=== PATIENT | male | born 1975 | race Caucasian/White ===

== ENCOUNTER 2020-12-11 10:42 | Outpatient (CLI) | payer OTHER, SELFPAY ==
--- NOTE | 2020-12-11 10:51 | CT_ITS ---
WS: [id number] CT HEAD WITH AND WITHOUT CONTRAST HISTORY: R22.0 - Localized swelling, mass and lump, head TECHNIQUE: Noncontrast 2.5 mm axial images obtained from the vertex to the skull base. Additional johnathan ging performed at 2.5 mm axial images status post IV contrast. Bone and soft tissue windows are revie wed. All CT scans at [facility] use at least one of these dose optimization techniques: a utomated exposure control; mA and/or kV adjustment per patient size (includes targeted exams where do se is matched to clinical indication); or iterative reconstruction. CONTRAST: Omnipaque 300; 95 mL IV. DLP: 1984.08 mGycm COMPARISON: None available. No acute intracranial hemorrhage, edema or midline shift. No enhancing mass or vascular malformations identified. Dural venous sinuses are normally enhancing. Visualized [place] is unremarkable. Paranasal sinuses as visualized: Very mild mucoperiosteal thickening in the ethmoid air cells. No air -fluid levels. Mastoid air cells: Clear. Calvarium and scalp: No fracture. Well-circumscribed encapsulated fatty mass in the calvarium posteri or to the occipital bone measuring 5.1 x 1.3 cm. There is no enhancement. No soft tissue nodule. CT/CT head wo/w con [id number] IMPRESSION: 1. No hemorrhage or intracranial. 2. No vascular malformations. 3. 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
[2020-12-11] MEDS: iohexol 300 mg/mL 100 mL Btl IV (11:30)
== END 2020-12-11 10:43 | disposition home or self-care (01) ==
PROVIDERS: PCP Registered Nurse; Visit Provider Surgery
DX: R22.0 Localized swelling, mass and lump, head (principal)
CPT/HCPCS: 70470; Q9967

== ENCOUNTER → 2021-01-03 13:35 | Outpatient (BNVA) | payer OTHER, SELFPAY | PROVIDERS: PCP Registered Nurse; Visit Provider Surgery | DX: R22.0 Localized swelling, mass and lump, head (principal); Z11.52 Encounter for screening for COVID-19; Z20.822 Contact with and (suspected) exposure to COVID-19 | CPT/HCPCS: 87635 ==

== ENCOUNTER 2021-01-09 05:57 | Day surgery (SDC) | payer OTHER, SELFPAY ==
[2021-01-08 18:35] VITALS: BMI 24.8
--- NOTE | 2021-01-09 06:06 | P.HP_ITS ---
Same Day Surgery H&P Indication for Procedure/HPI DATE OF PROCEDURE: January 09, 2021 CHIEF COMPLAINT/INDICATIONFOR SURGICAL PROCEDURE: Spot on my head PREOP DIAGNOSIS: SCALP MASS PLANNED PROCEDRUE: Operation Date: 01/09/21 07:10 Proposed Procedures p excision of skin lesion (scalp) 06851 r22.0(Not Applicable) - Rhys Webber MD This is a pleasant 45 years old gentleman comes today escorted by his , presents with a long history of a mass located towards the right side of the scalp particularly on the right parietal area. Patient reports that he has been having some discomfort whenever it gets bumped, denies any surgical intervention at that spot before. Report no recent images of the head, denies any other constitutional symptoms and no evidence of symptoms of increased intracranial pressure. Patient reports that he has some pain referred to the right trapezius muscle. Interim history 01/09/2021 Patient undergone a diagnostic CT scan per my request to rule out dermoid cyst and the CT scan was done and showed 1. No hemorrhage or intracranial. 2. No vascular malformations. 3. 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 Patient comes today for excision of mass on the scalp ROS All systems have been reviewed negative except as per the above or per problem list Medications/Allergies* Home Medications Medication Instructions Recorded Confirmed Type No Known Home Medications 11/06/20 11/20/20 History Allergies/Adverse Reactions Allergy/AdvReac Type Severity Reaction Status Date / Time No Known Allergies Allergy Verified 01/09/21 06:09 Pertinent History/Comorbid Conditions* Family History (Updated 11/06/20 @ 10:00 by Tess Perry LPN) Diabetes Social History Smoking and tobacco status: current every day smoker cigarettes Alcohol intake: never Adopted: No Caregiver/support person: No Lives independently: No Household members: spouse and children Marital status: Current occupational status: employed Sexually active: Yes Current gender identity: Male Pertinent Exam Findings alert, oriented x 3, clear to auscultation bilaterally, regular rate & rhythm and procedure specific exam findings (Scalp mass measures 5 x 5 cm located at the midline occipital) Likely lipoma based on clinical examination Recommendations Surgery/Procedure today (Excision of scalp mass) Other Plans: After thorough history physical examination and reviewing the chart and images of the CT scan with my personal interpretation, we will plan for excision of posterior scalp mass as an outpatient procedure. Indications, risks, benefits and alternatives were discussed with the patient and he did agree to proceed. Informed consent per chart Coding Level of Care Code Acute Water Pipe Installer for Mariann Calzada
[2021-01-09] MEDS: sodium chloride 0.9% 1,000 ML 30 ML IV (06:42)
--- NOTE | 2021-01-09 06:57 | ANES.PREANE2 ---
Documented by User: Chip Snyder Jr, CARBON GRINDER 01/09/21 06:59 Pre-Anesthetic Assessment Pre-Anesthetic Assessment: Height/Weight: Height 1.8 m Weight 80.739 kg Preop Diagnosis: Mass of the scalp Proposed Procedure: Operation Date: 01/09/21 07:10 Proposed Procedures p excision of skin lesion (scalp) 37990 r22.0(Not Applicable) - Rhys Webber MD Was Beta Darci taken within 24 hours: N/A Was Clonidine taken within 24 hours: N/A Last intake: Intake Last Liquid Date 01/09/21 Last Liquid Time 21:00 Last Solid Date 01/08/21 Last Solid Time 21:00 Social: Social History: Alcohol and Tobacco Exam: Pre-Anes Outpt Exam: alert, oriented x 3, clear to auscultation bilaterally and regular rate & rhythm Airway: Submandibular: WNL Cervical ROM: WNL MP: 2 Dentition: Chipped and Loose Additional comments: very poor dentition History/ROS: No significant history except as noted and No significant complaints Pulmonary: Pulmonary: None reported CV/HEM: CV/HEM: None reported : : None reported Hepatic: Hepatic: None reported GI: GI: None reported Metabolic: Metabolic: None reported Musc/skel: Musc/skel: None reported Neuropsych: Neuropsych: None reported Anesthetic Plan: ASA status: 2 Anesthesia: Anesthesia Evaluation and General Risk of > 500 ml blood loss (7ml/kg in children): No Meds/Allergies Current Medications: Current Medications Generic Name Dose Route Start Last Admin Trade Name Freq PRN Reason Stop Dose Admin Sodium Chloride 1,000 mls @ 30 ml s/hr 01/09/21 06:30 01/09/21 06:42 Sodium Chloride 0.9% IV 01/10/21 06:29 30 mls/hr .Q24H TOAN Administration PFSH Anesthesia PFSH: Family History Other Diabetes Social History Smoking and tobacco status: current every day smoker cigarettes Alcohol intake: never Adopted: No Caregiver/support person: No Lives independently: No Household members: spouse and children Marital status: Current occupational status: employed Sexually active: Yes Current gender identity: Male Data Anesthesia Cardiac Studies: No Data to Display Documented by User: Ricci Ho 01/09/21 07:31 PFSH Anesthesia PFSH: Family History Other Diabetes Social History Smoking and tobacco status: current every day smoker cigarettes Alcohol intake: never Adopted: No Caregiver/support person: No Lives independently: No Household members: spouse and children Marital status: Current occupational status: employed Sexually active: Yes Current gender identity: Male Data Anesthesia Cardiac Studies: No Data to Display
--- NOTE | 2021-01-09 07:44 | PM.OP ---
Operative Report Date of procedure: January 09, 2021 Pre-op Diagnosis: Mass of the scalp Post-op diagnosis: other (Lipoma of the scalp) Post-op Findings: 5.5 x 4 x 1.5 cm Procedure Done: Excision of scalp mass Specimens removed/disposition: Lipoma of the scalp short sutures marked superior and blue ink marked anterior 5.5x4x1.5 cm Surgeon: Rhys Webber Home Care Administrator: avionics repair technician Fatmata Circulating nurses Sarah and Saba Anesthesia: General (LMA member of the legislative council Jb) Estimated blood loss (mL): 5 Condition: stable Disposition: same day Brief History: Symptomatic scalp mass. Full H&P and informed consent per chart. Procedure: After identifying the patient holding area, the scalp mass was marked before the procedure by myself, patient was then taken to the operative suite, was placed in supine position LMA was placed by anesthesia, IV propofol was infused by the anesthesia, prophylactic IV antibiotics were given per protocol, patient was then positioned in the left lateral position were all pressure points were padded and left ax roll was placed. Prep and drape of the scalp lesion was done under the usual sterile technique Time-out was done verifying the patient's name/date of /planned procedure and destination after the procedure, all were in agreement. After palpation of the scalp mass, I did a longitudinal incision on top of the mass, dissection was carried after the skin incision all the way to the periosteum, lipoma was identified with measurements of 5.5 x 4 x 1.5 cm, short sutures marked anterior and blue ink marked anterior, the specimen was then passed to the circulating nurse for permanent pathology. Thorough irrigation of the cavity was done and hemostasis, followed by deep dermal closure by 2-0 Vicryl, then 2/0 nylon in a horizontal mattress fashion sutures for mass skin closure. Lidocaine 2% was injected at the site of the incision that prior to the injection aspiration was done to make sure no injection is going into any vessel, followed by triple antibiotic ointment and dry dresing then pressure dressing. Patient tolerated the procedure well, count of instruments, needles and sponges were completed at the end of the procedure. And then patient was taken to the recovery area in stable condition. I Was present for the whole entire procedure
[2021-01-09] MEDS: lidocaine 2% INJ 20 mL INJECTION (07:51)
[2021-01-09] MEDS: neomycin-poly-bacitracin oint 28 gm 1 APPLIC TOPICAL (07:51)
[2021-01-09 07:56] VITALS: BP 110/71; PULSE 56; RESP 10; TEMP 36.4; O2SAT 92
[2021-01-09 08:00] VITALS: BP 120/78; PULSE 51; RESP 19; O2SAT 100
[2021-01-09 08:05] VITALS: BP 132/105; PULSE 57; RESP 18; O2SAT 100
[2021-01-09 08:10] VITALS: BP 132/95; PULSE 62; RESP 16; TEMP 36.6; O2SAT 97
[2021-01-09 08:26] VITALS: BP 131/95; PULSE 68; RESP 18; TEMP 36.2; O2SAT 98
[2021-01-09 08:41] VITALS: BP 123/91; PULSE 66; RESP 18; O2SAT 96
--- NOTE | 2021-01-09 14:55 | ANE.PACU2 ---
Inpatient post-anesthesia follow up: Airway intact: Yes Vital signs: Temperature 97.2 F Pulse Rate 66 Respiratory Rate 18 Blood Pressure 123/91 Pulse Oximetry 96 Oxygen Delivery Me thod Room Air Oxygen Flow Rate 8 Fraction of Inspir ed Oxygen Hydration adequate: Yes Nausea and vomiting: No Pain level: 1 Mental status: Baseline
== END 2021-01-09 09:05 | disposition home or self-care (01) ==
PROVIDERS: PCP Registered Nurse; Visit Provider Surgery
PROC: (CPT 11426; principal; 2021-01-09 07:00)
DX: D17.0 Benign lipomatous neoplasm of skin and subcutaneous tissue of head, face and neck (principal); F17.210 Nicotine dependence, cigarettes, uncomplicated
CPT/HCPCS: 11426; 12032; 88307; J0690; J1100; J2405; J2704; J3010; J7030

== ENCOUNTER 2022-07-29 10:04 | Outpatient (CLI) | payer BC, SELFPAY ==
--- NOTE | 2022-07-29 10:35 | XRR_ITS ---
PROCEDURE INFORMATION: Exam: XR Lumbosacral Spine Exam date and time: 07/29/2022 10:36 AM Age: 47 years old Clinical indication: Low back pain; Additional info: S39.012a - strain of muscle, fascia and tendon of lower b. . . TECHNIQUE: Imaging protocol: Radiologic exam of the lumbosacral spine. Views: 2 or 3 views. COMPARISON: No relevant prior studies available. FINDINGS: Bones/joints: The lumbar spine maintains a normal lordotic curvature. Questionable pars defects at L5. No spondylolisthesis identified. The vertebral bodies maintain normal height. Minimal loss of intervertebral disc height at L5-S1 with no significant endplate degenerative changes. No significant degenerative changes identified. Soft tissues: Unremarkable. XR/XR lumbar spine 2-3V* [id number] IMPRESSION: 1. No vertebral body height loss or traumatic malalignment identified. 2. No significant degenerative changes identified. 3. Questionable pars defects at L5. No spondylolisthesis identified.
== END 2022-07-29 10:05 | disposition home or self-care (01) ==
LOC: RAD 10:14
PROVIDERS: PCP Registered Nurse; Visit Provider Nurse Practitioner Family
DX: S39.012A Strain of muscle, fascia and tendon of lower back, initial encounter (principal); X58.XXXA Exposure to other specified factors, initial encounter
CPT/HCPCS: 72100

== ENCOUNTER 2022-08-01 11:32 | Outpatient (CLI) | payer BC, SELFPAY ==
--- NOTE | 2022-08-01 11:45 | MR_ITS ---
WS: [id number] MRI LUMBAR SPINE NONCONTRAST TECHNIQUE: Sagittal T1, T2 and STIR imaging. Axial T1 and T2 imaging. CLINICAL INFORMATION: S39.012A - Strain of muscle, fascia and tendon of lower b... COMPARISON: None. FINDINGS: Mild lumbar curve. No acute compression. No high-grade central canal stenosis. Disc bulging worse at L5-S1. L1-L2: Normal. L2-L3: Normal. L3-L4: No significant disc bulging. Mild facet arthropathy. Spinal canal and foramen are patent. L4-L5: Mild annular bulging. Slight impingement on the RIGHT subarticular recess and traversing RIGHT L5 nerve root. Mild RIGHT and no significant LEFT foraminal narrowing. Mild facet arthropathy. L5-S1: Small LEFT subarticular disc protrusion. Impingement traversing LEFT S1 nerve root in the suba rticular recess. Mild LEFT foraminal narrowing. RIGHT foramen is patent. Spinal canal is patent. Mild facet arthropathy. Visualized pelvic bony structures: Normal. Paravertebral soft tissues: Normal. Adrenal glands are normal. Small shallow central protrusions mid cervical spine at C3-C4 C4-C5 and C5-C6. MR/MR lumbar spine wo con* [id number] IMPRESSION: 1. Mild lumbar curve. No acute compression. 2. Mild annular bulging L4-L5 impinges the traversing RIGHT L5 nerve root in t he subarticular recess. Mild RIGHT foraminal narrowing at this level. 3. LEFT subarticular disc protrusion L5-S1 extends into the LEFT subarticular recess with impingement traversing LEFT S1 nerve root. Mild LEFT foraminal narr owing. 4. Mild facet arthropathy L3-L5.
== END 2022-08-01 11:33 | disposition home or self-care (01) ==
LOC: RAD 11:33
PROVIDERS: PCP Registered Nurse; Visit Provider Nurse Practitioner Family
DX: S39.012A Strain of muscle, fascia and tendon of lower back, initial encounter (principal); M51.26 Other intervertebral disc displacement, lumbar region; M51.27 Other intervertebral disc displacement, lumbosacral region; M47.816 Spondylosis without myelopathy or radiculopathy, lumbar region; X58.XXXA Exposure to other specified factors, initial encounter
CPT/HCPCS: 72148

== ENCOUNTER → 2022-08-20 13:53 | Outpatient (BNVA) | payer BC, SELFPAY | PROVIDERS: PCP Nurse Practitioner Family; Referring Provider Nurse Practitioner Family; Visit Provider Physician Assistant | DX: M51.36 Other intervertebral disc degeneration, lumbar region (principal) | CPT/HCPCS: 72110 ==

== ENCOUNTER 2022-08-26 09:08 | Day surgery (SDC) | payer BC, SELFPAY ==
[2022-08-23 11:19] VITALS: BMI 25.9
--- NOTE | 2022-08-23 11:32 | ANES.PREANE2 ---
Pre-Anesthetic Assessment Height/Weight: Height 1.8 m Weight 84.368 kg Preop Diagnosis: Mass of the scalp Operation Date: 08/26/22 13:40 Proposed Procedures p Discectomy:Microdiscectomy L5/S1 40153, M51.27, M5417,M51.36(Left) - Sebastián Pineda DO Familial anesthetic complications: NOne Social Tobacco and No alcohol Exam alert, oriented x 3, clear to auscultation bilaterally and regular rate & rhythm Airway Mallampati: Class II Dentition: other (no teeth) Pulmonary None reported CV/HEM None reported None reported Hepatic None reported GI None reported Metabolic None reported Musc/skel Lower Back Pain Neuropsych None reported Anesthetic Plan ASA status: 1 Anesthesia: General Risk of > 500 ml blood loss (7ml/kg in children): No Medications/Allergies Home Medications Medication Instructions Recorded Confirmed Last Taken Type hydrocodone 5 mg-acetaminophen 325 1 tab PO Q6H PRN pain 7 days #28 08/20/22 08/23/22 08/23/22 Rx mg tablet tabs Allergies Allergy/AdvReac Type Severity Reaction Status Date / Time No Known Allergies Allergy Verified 08/20/22 14:05 [facility] Anesthesia Medical History (Updated 08/20/22 @ 16:36 by Fausto Garcia PA-C) Dermoid cyst of scalp Mass of scalp Surgical History (Updated 08/23/22 @ 11:16 by More Culp) History of inguinal hernia repair, bilateral 2009 History of removal of cyst multiple facial Family History Family/Other Cancer Diabetes Hyperlipidemia Family/Other No problems noted. Father Diabetes Stroke Grandmother Dementia Hyperlipidemia Grandfather Hyperlipidemia Denies family history of CAD (coronary artery disease) Chronic kidney disease (CKD) Lung disease Hypertension Social History Smoking and tobacco status: current every day smoker cigarettes Alcohol intake: current Alcohol intake frequency: few times a month Alcohol type: beer Adopted: No Caregiver/support person: No Lives independently: No Household members: spouse and children Marital status: Current occupational status: employed Sexually active: Yes Current gender identity: Male Data Anesthesia Cardiac Studies: No Data to Display
[2022-08-26] VITALS (9 sets, daily range): BP systolic 111–166; BP diastolic 79–97; PULSE 56–75; RESP 10–20; TEMP 36.1–36.3; O2SAT 94–100
[2022-08-26] MEDS: sodium chloride 0.9% 1,000 ML 30 ML IV (09:56)
--- NOTE | 2022-08-26 09:58 | W.PM.OPSUD ---
Surgery/Procedure H&P Update DATE OF PROCEDURE: August 26, 2022 DATE H&P PERFORMED: 08/20/22 H&P UPDATE INFORMATION: I have reviewed H&P completed within last 30 days, I have examined patient prior to procedure and No changes to prior documentation PREOP DIAGNOSIS: Lumbosacral radiculopathy, HNP L5-S1 PLANNED PROCEDURE: Operation Date: 08/26/22 11:05 Proposed Procedures p Discectomy:Microdiscectomy L5/S1 99001, M51.27, M5417,M51.36(Left) - Sebastián Pineda DO
[2022-08-26] MEDS: ceFAZolin 2,000 MG in sodium chloride 0.9% (plus) 50 ML 100 MG IV (10:38)
[2022-08-26] MEDS: lidocaine-epi 1% 20 mL INJ INJECTION (11:10)
--- NOTE | 2022-08-26 11:41 | XR_ITS ---
WS: [id number] Lumbar spine, C-arm fluoroscopy, 08/26/2022 Clinical Data: OR PICS Comparison: None. Findings: Dr. Pineda performed a lumbar decompression XR/XR lumbar spine 1V [id number] Impression: Lumbar decompression.
--- NOTE | 2022-08-26 11:56 | P.OP_ITS ---
Operative Report Date of procedure: August 26, 2022 Pre-op diagnosis: Preop Diagnosis Lumbosacral radiculopathy, HNP L5-S1 Post-op diagnosis: same Procedure done: 1. L5/S1 laminectomy with partial facetectomy and diskectomy Surgeon: Sebastián Pineda Material Hauler: Fausto Garcia Material Hauler: The certified surgical tech/first assistant, Fausto Garcia, PAC was needed for his expertise under the microscope. He was important and necessary throughout the procedure to complete in a safe and timely manner. He assisted with patient positioning prepping and draping tissue retraction suctioning of the operative field protection of the dural sac and tissue closure Estimated blood loss (mL): 5 Procedure: Patient is brought to the operative suite. After undergoing anesthesia they are placed in the prone position. All areas of impingement are well padded. Patient is then prepped and draped in the normal sterile fashion. A skin incision is made over the L5/S1 level. This is confirmed under c-arm guidance. A series of dilators are passed and the tubular retractor is docked on the L5 lamina. A bovie is used to clear the soft tissue off the lamina and the L 5/S1 facet joint. A high speed elida is then used to perform the laminectomy and take down the medial aspect of the L 5/S1 facet joint. A kerrison rongeure was then used to take down the remaining lamina and smooth the edge of the laminectomy up to the point where the ligamentum flavum attaches. Attention was then brought to the medial aspect of the facet joint. The remaining medial aspect of the superior and inferior aspect of the facet joint were taken down with the kerrison from the pedicle of L5 to S1. The facet joint had significant hypertrophy. Attention was then brought to the Ligamentum Flavum. The ligament was taken down from the lamina of L5 to S1 and out medially to the remaining facet joint. The ligament was thick. The dura was then exposed. The dura was in good repair. S1 nerve was retracted medially. Disc herniation was identified removed with a micropituitary. The L5 nerve was then traced with a curette out the L5/S1 foramen and found to be adequately decompressed. The S1 nerve was traced with a curette around the S1 pedicle. The lateral recess was opened with a kerrison helping to further decompress the S1 nerve. Wound is then irrigated copiously with saline and surgiflo is used to stop any bleeding. The tubular retractor is removed and the wound is closed with vicryl and monocryl suture. Glue is then used to protect the wound. A sterile dressing is then placed. Patient was then placed in the supine position and transferred to the PACU in stable condition.
--- NOTE | 2022-08-26 11:59 | P.ANESUD_ITS ---
Pre-Anesthetic Update Pre-Anesthetic Assessment: Date of Surgery/Procedure: 08/26/22 Preop Nayely gnosis: Lumbosacral radiculopathy, HNP L5-S1 Proposed Procedure: Operation Date: 08/26/22 11:05 Proposed Procedures p Discectomy:Microdiscectomy L5/S1 67660, M51.27, M5417,M51.36(Left) - Sebastián Pineda, DO Any changes to Pre-Anesthetic Assessment?: No Last Intake: Intake Last Liquid Date 08/25/22 Last Liquid Time 23:00 Last Solid Date 08/25/22 Last Solid Time 15:00 Vitals: Temperature 97.4 F L 08/26/22 11:49 Temperature Source Temporal Artery S can 08/26/22 11:49 Pulse Rate 56 L 08/26/22 11:49 Respiratory Rate 12 08/26/22 11:49 Blood Pressure 129/84 08/26/22 11:49 Blood Pressure Shanice n 99 08/26/22 11:49 Pulse Oximetry 100 08/26/22 11:49 Oxygen Delivery Me thod 08/26/22 11:49 Oxygen Flow Rate 10 08/26/22 11:49 Exam: Pre-Anes Outpt Exam: alert, oriented x 3, clear to auscultation bilaterally and regular rate & rhythm Cardiac Studies: No Data to Display
[2022-08-26] MEDS: ceFAZolin 2,000 MG in sodium chloride 0.9% (plus) 50 ML 2 MG IV (12:07)
[2022-08-26] MEDS: HYDROcodone-acetaminophen 10-325 mg Tablet 1 TAB PO (12:58)
--- NOTE | 2022-08-26 15:30 | ANE.PACU2 ---
Inpatient post-anesthesia follow up: Airway intact: Yes Vital signs: Temperature 97.0 F Pulse Rate 72 Respiratory Rate 18 Blood Pressure 149/91 Pulse Oximetry 94 Oxygen Delivery Me thod Room Air Oxygen Flow Rate 10 Fraction of Inspir ed Oxygen Hydration adequate: Yes Nausea and vomiting: No Pain level: 2 Mental status: Baseline
== END 2022-08-26 13:06 | disposition home or self-care (01) ==
PROVIDERS: PCP Nurse Practitioner Family; Visit Provider Orthopaedic Surgery
PROC: (CPT 63030; principal; 2022-08-26 10:55)
DX: M54.16 Radiculopathy, lumbar region (principal); F17.210 Nicotine dependence, cigarettes, uncomplicated
CPT/HCPCS: 63030; 72020; 76000; J0690; J1170; J2405; J2704; J3010; J3490; J7030